=== PATIENT | male | born 1960 | race Two or more races ===

== ENCOUNTER 2019-12-28 22:42 | Emergency (ER) | payer BC ==
[~2019-12-28] VITALS: Ht 165.1 cm; Wt 71.5 kg
[~2019-12-28 22:42] MED LIST: LISI-167 PO
--- NOTE | 2019-12-29 00:06 | NUR ---
THIS IS A 59Y M THAT COMES IN TONIGHT FOR ABD PAIN X3 HRS. PT DENIES N/V/D JUST STS SUDDEN ABD PAIN. THAT BEGAN MINOR AND HAS GOTTEN TO WHERE HE DOES NOT THINK HE WOULD BE ABLE TO SLEEP. PT APPEARS TO BE IN NO DISTRESS SPEAKING IN FULL SENTENCES. CONNECTED TO MONITORING VSS.
[2019-12-29] MEDS ORDERED: SODIUM CHLORIDE 0.9% 1,000 ML IV ONE (00:11)
[2019-12-29] MEDS ORDERED: SODIUM CHLORIDE FLUSH 10ML SYR IVF ONE (00:30)
[2019-12-29 00:48] LABS: BASOPHILS # (AUTO) 0.03 x10^3/uL (0-0.1); BASOPHILS % (AUTO) 1 % (0-1); EOSINOPHILS # (AUTO) 0.17 x10^3/uL (0-0.4); EOSINOPHILS % (AUTO) 3 % (1-7); LYMPHOCYTES % (AUTO) 21 % (22-44); MD NO; MEAN CORPUSCULAR HEMOGLOBIN 34.2 pg (27.5-34.5); MEAN CORPUSCULAR HGB CONC 34.4 g/dL (33.2-36.2); MEAN CORPUSCULAR VOLUME 99.3 fL (81-97); MEAN PLATELET VOLUME 8.2 fL (7.4-10.4); MONOCYTES # (AUTO) 0.39 x10^3/uL (0.2-0.8); MONOCYTES % (AUTO) 6 % (2-9); NEUTROPHILS # (AUTO) 4.41 x10^3/uL (1.8-6.8); NEUTROPHILS % (AUTO) 70 % (42-75); PLATELET COUNT 200 x10^3/uL (130-400); RED BLOOD COUNT 4.33 x10^6/uL (4.38-5.82); RED CELL DISTRIBUTION WIDTH 13.1 % (9.4-14.8)
[2019-12-29 00:54] LABS: ALANINE AMINOTRANSFERASE 16 U/L (12-78); ALBUMIN 3.9 g/dL (3.4-5.0); ANION GAP 5 mmol/L (5-15); CALCIUM 8.6 mg/dL (8.5-10.1); CHLORIDE 109 mmol/L (98-107)
[2019-12-29 00:56] LABS: ALKALINE PHOSPHATASE 84 U/L (45-117); BILIRUBIN,TOTAL 0.4 mg/dL (0.2-1.0); TOTAL PROTEIN 7.8 g/dL (6.4-8.2)
[2019-12-29] MEDS ORDERED: OMNIPAQUE 350 MG/ML, 100ML BOTTLE ONE (01:18)
[2019-12-29 03:10] VITALS: BP 116/80
--- NOTE | 2019-12-29 03:10 | NUR ---
task RN: pt passed PO fluid test. pt denies any nausea at this time.
[2019-12-29 03:23] LABS: TROPONIN I < 0.015 ng/mL (0.000-0.045)
== END 2019-12-29 04:46 | disposition home or self-care (01) ==
LOC: ED 12-29 04:15
DX: R10.84 Generalized abdominal pain (principal); N28.1 Cyst of kidney, acquired; R94.31 Abnormal electrocardiogram [ECG] [EKG]; K59.00 Constipation, unspecified; I10 Essential (primary) hypertension
CPT/HCPCS: 36415; 71045; 74177; 80053; 83690; 84484; 85025; 93005; 96360; 96361; 99285; J7030; Q9967